=== PATIENT | female | born 1965 | race Caucasian/White ===

== ENCOUNTER 2021-11-29 21:56 | Inpatient (IN) | payer MEDICAID ==
[~2021-11-29] VITALS: Ht 157.5 cm; Wt 107.0 kg
[2021-11-29 23:43] LABS: CLARITY,URINE CLOUDY (Clear); COLOR,URINE YELLOW (Yellow); GLUCOSE, URINE 100 mg/dl (Neg); KETONES,URINE 15 mg/dl (Neg); LEUKOCYTE ESTERASE ,URINE SMALL (Neg); NITRITES, URINE NEGATIVE (Neg); OCCULT BLOOD,URINE LARGE (Neg); PROTEIN,URINE 100 mg/dl (Neg)
[2021-11-29 23:49] LABS: UA COLLECTION TYPE CLN CATCH MIDSTREAM
[2021-11-29 23:50] LABS: URINE AMPHETAMINE SCREEN NEGATIVE (Neg); URINE BARBITUATE SCREEN NEGATIVE (Neg); URINE BENZODIAZEPINES SCREEN NEGATIVE (Neg); URINE CANNABINOID SCREEN NEGATIVE (Neg); URINE COCAINE SCREEN NEGATIVE (Neg); URINE METHADONE SCREEN NEGATIVE (Neg); URINE OPIATE SCREEN NEGATIVE (Neg); URINE PHENCYCLIDINE SCREEN NEGATIVE (Neg)
[2021-11-29 23:52] LABS: BACTERIA,URINE FEW /HPF (Neg); MUCUS STRANDS FEW /LPF (Neg); SQUAMOUS EPITHELIAL CELL,UR MODERATE /LPF (FEW); WBC,URINE 0-4 /HPF (0-4)
[2021-11-29 23:53] LABS: RBC,URINE 20-50 /HPF (0-2)
[2021-11-30 00:27] LABS: ALANINE AMINOTRANSFERASE 25 U/L (12-78); ALBUMIN/GLOBULIN RATIO 0.9 (1.1-1.5); ALKALINE PHOSPHATASE 81 IU/L (46-116); ANION GAP 10 (8-16); ASPARTATE AMINO TRANSFERASE 40 U/L (10-37); BILIRUBIN,DIRECT 0.3 MG/DL (0-0.3); BILIRUBIN,TOTAL 0.9 MG/DL (0.1-1.0); BLOOD UREA NITROGEN 13 MG/DL (7-18); BUN/CREATININE RATIO 17.8 (6.6-38.0); CALCIUM 9.1 MG/DL (8.5-10.1); CHLORIDE 97 MMOL/L (99-107); CREATININE 0.73 MG/DL (0.40-0.90); GLUCOSE 125 MG/DL (70-104); LIPASE 114 U/L (73-393); SODIUM 135 MMOL/L (135-145); TOTAL CARBON DIOXIDE 27.8 MMOL/L (24-32); TOTAL PROTEIN 8.4 G/DL (6.4-8.2); eGFR 82 ML/MIN
[2021-11-30 00:29] LABS: ETHANOL < 0.010 GM/DL (0.0-0.010)
[2021-11-30 00:31] LABS: POTASSIUM 2.6 MMOL/L (3.5-5.1)
[2021-11-30] MEDS ORDERED: potassium Cl 20 mEq SR tablet PO STA (00:37)
[2021-11-30 01:14] LABS: BASOPHILS % (AUTO) 0.6 % (0-1); EOSINOPHILS % (AUTO) 0.3 % (0-6); HEMATOCRIT 30.7 % (35.0-45.0); HEMOGLOBIN 9.6 g/dl (12.0-16.0); LYMPHOCYTES # (AUTO) 0.5 X10'3 (1.1-4.8); LYMPHOCYTES % (AUTO) 11.9 % (21-51); MEAN CORPUSCULAR HEMOGLOBIN 22.6 PG (27.0-31.0); MEAN CORPUSCULAR HGB CONC 31.2 g/dL (33.0-36.5); MEAN CORPUSCULAR VOLUME 72.5 FL (78-98); MEAN PLATELET VOLUME 7.9 FL (7.4-10.4); MONOCYTES # (AUTO) 0.5 X10'3 (0-0.9); MONOCYTES % (AUTO) 11.6 % (2-12); NEUTROPHILS % (AUTO) 75.6 % (42-75); PLATELET COUNT 83 X10'3 (140-440); RED BLOOD COUNT 4.23 X10'6 (4.20-5.60); RED CELL DISTRIBUTION WIDTH 19.4 % (11.5-14.5); WHITE BLOOD COUNT 3.9 X10'3 (4.5-11.0)
[2021-11-30] MEDS ORDERED: LORazepam 2 mg/ml vial IV ONE (01:30)
[2021-11-30] MEDS ORDERED: thiamine 100mg/ml 2ml inj. IV ONE (02:10)
[2021-11-30] MEDS ORDERED: iohexol 300mg/ml 100ml inj. ONE (02:38)
--- NOTE | 2021-11-30 02:47 | NUR ---
PT TO CT
[2021-11-30] MEDS ORDERED: CefTRIAXone/D5W-Rocephin 1gm 50 ML IV ONE (03:00)
[2021-11-30] MEDS ORDERED: haloperidol 5mg tablet PO PRN (05:50)
[2021-11-30] MEDS ORDERED: magnesium 2GM in 50ml NS 50 ML IV PRN (05:50)
[2021-11-30] MEDS ORDERED: magnesium 4gm in 100ml NS 100 ML IV PRN (05:50)
[2021-11-30] MEDS ORDERED: LORazepam 2 mg/ml vial IV PRN (05:50)
[2021-11-30] MEDS ORDERED: potassium CL 10mEq/100ml bag 100 ML IV PRN (05:50)
[2021-11-30] MEDS ORDERED: potassium Cl 20 mEq SR tablet PO PRN (05:50)
[2021-11-30] MEDS ORDERED: ondansetron/PF 4mg/2ml inj IV PRN (05:50)
[2021-11-30] MEDS ORDERED: magnesium Cl slow-release 64mg tablet PO PRN (05:50)
[2021-11-30] MEDS ORDERED: dextrose 50%-water 50ml dispensing syringe IV PRN (05:50)
[2021-11-30] MEDS ORDERED: haloperidol lactate 5mg/ml inj IM PRN (05:50)
[2021-11-30] MEDS: normal saline 1000ml 1,000 ML IV SCH ×2 (06:07→16:52)
[2021-11-30 08:00] VITALS: BP_SYST 0
[2021-11-30] MEDS ORDERED: folic acid 1mg/0.2ml inj IV SCH (08:00)
[2021-11-30] MEDS: K and/or MAG REPLACEMENT MC SCH ×2 (08:00→12:00)
--- NOTE | 2021-11-30 08:10 | NUR ---
Report attemped, will attempt later
[2021-11-30] MEDS: thiamine 100mg/ml 2ml inj. IV SCH ×3 (08:36→20:24)
[2021-11-30] MEDS: docusate sod 100mg capsule PO SCH ×2 (08:37→20:00)
[2021-11-30 08:48] LABS: % IRON SATURATION 5 % (11-46); IRON 18 UG/DL (49-151); TOTAL IRON BINDING CAPACITY 334 UG/DL (259-388)
[2021-11-30 08:52] LABS: MAGNESIUM 1.5 MG/DL (1.5-2.4); POTASSIUM 3.4 MMOL/L (3.5-5.1)
--- NOTE | 2021-11-30 10:36 | NUR ---
Pt admitted to PCU accompanied by staff and daughter via wheel chair, Admission initiated.Pt denies ETOH use or history.Belongings taken per daughter.Pt refusing CT scan. Encouraged by staff and daughter, Daughter became tearful, pt continue to refuse.Telemetry monitoring in progress.Will continue to monitor.
[2021-11-30] MEDS ORDERED: FOLI0.4T14 PO (11:26)
[2021-11-30] MEDS ORDERED: MULT-1085 PO (11:26)
[2021-11-30] MEDS ORDERED: OMEG10006 PO (11:26)
[2021-11-30] MEDS ORDERED: ASCO-134 PO (11:26)
[2021-11-30] MEDS ORDERED: PANT40TA54 PO (11:26)
[2021-11-30] MEDS ORDERED: FERR-106 PO (11:26)
[2021-11-30] MEDS ORDERED: ALBU8.5H17 IH (11:26)
[2021-11-30] MEDS ORDERED: ACET-75 PO (11:26)
[2021-11-30] MEDS ORDERED: albuterol 2.5 MG/3 ML nebule NEB PRN (15:55)
[2021-11-30] MEDS ORDERED: acetaminophen 325mg tablet PO PRN (15:55)
[2021-11-30 16:00] VITALS: BP 128/78
[2021-11-30] MEDS: acetaminophen 325mg tablet PO PRN (17:11)
[2021-11-30 22:00] VITALS: BP 116/80
[2021-12-01] MEDS: potassium Cl 20 mEq SR tablet PO PRN ×2 (00:01→03:57)
[2021-12-01] MEDS: normal saline 1000ml 1,000 ML IV SCH (01:50)
[2021-12-01 02:00] VITALS: BP 119/68
[2021-12-01 04:51] VITALS: BP_SYST 114; BP_SYST 122; BP_DIAS 72; BP_DIAS 73
[2021-12-01 04:52] VITALS: BP 104/59
[2021-12-01 06:00] VITALS: BP 107/67
[2021-12-01 07:14] LABS: BASOPHILS % (AUTO) 0.7 % (0-1); EOSINOPHILS # (AUTO) 0.1 X10'3 (0-0.9); EOSINOPHILS % (AUTO) 2.3 % (0-6); HEMOGLOBIN 8.3 g/dl (12.0-16.0); LYMPHOCYTES # (AUTO) 0.6 X10'3 (1.1-4.8); LYMPHOCYTES % (AUTO) 23.9 % (21-51); MEAN CORPUSCULAR HGB CONC 30.9 g/dL (33.0-36.5); MEAN CORPUSCULAR VOLUME 74.6 FL (78-98); MEAN PLATELET VOLUME 7.8 FL (7.4-10.4); MONOCYTES # (AUTO) 0.4 X10'3 (0-0.9); MONOCYTES % (AUTO) 15.4 % (2-12); NEUTROPHILS # (AUTO) 1.5 X10'3 (1.8-7.7); NEUTROPHILS % (AUTO) 57.7 % (42-75); PLATELET COUNT 68 X10'3 (140-440); RED BLOOD COUNT 3.62 X10'6 (4.20-5.60); RED CELL DISTRIBUTION WIDTH 19.5 % (11.5-14.5); WHITE BLOOD COUNT 2.6 X10'3 (4.5-11.0)
[2021-12-01] MEDS: OMEGA-3/DHA/EPA/FISH OIL 1 EACH CAPSULE.DR PO SCH ×2 (07:19→07:32)
[2021-12-01] MEDS: docusate sod 100mg capsule PO SCH (07:19)
[2021-12-01] MEDS: ferrous sulfate 325mg tablet PO SCH ×3 (07:19→07:33)
[2021-12-01] MEDS: thiamine 100mg/ml 2ml inj. IV SCH (07:20)
[2021-12-01] MEDS: acetaminophen 325mg tablet PO PRN (07:28)
[2021-12-01 07:30] LABS: ALBUMIN 3.1 G/DL (3.4-5.0); ANION GAP 8 (8-16); BLOOD UREA NITROGEN 11 MG/DL (7-18); BUN/CREATININE RATIO 17.7 (6.6-38.0); CALCIUM 8.1 MG/DL (8.5-10.1); CHLORIDE 108 MMOL/L (99-107); CREATININE 0.62 MG/DL (0.40-0.90); GLUCOSE 107 MG/DL (70-104); POTASSIUM 3.6 MMOL/L (3.5-5.1); SODIUM 139 MMOL/L (135-145); TOTAL CARBON DIOXIDE 23.2 MMOL/L (24-32); eGFR > 90 ML/MIN
[2021-12-01] MEDS: folic acid 0.4mg tablet PO SCH ×2 (07:35→08:14)
[2021-12-01] MEDS ORDERED: multivitamins, therapeutics tablet PO SCH (08:00)
[2021-12-01] MEDS ORDERED: ascorbic acid 500mg tablet PO SCH (08:00)
[2021-12-01] MEDS ORDERED: pantoprazole 40mg Tablet.DR PO SCH (08:00)
[2021-12-01] MEDS: K and/or MAG REPLACEMENT MC SCH (08:00)
[2021-12-01 09:56] LABS: PLATELET ESTIMATE DECREASED; TOTAL CELLS COUNTED 100
[2021-12-01 09:57] LABS: LARGE PLATELETS FEW; POLYCHROMASIA 1+
[2021-12-01 09:58] LABS: ELLIPTOCYTES FEW
[2021-12-01 09:59] LABS: MICROCYTOSIS 1+
[2021-12-01 10:00] LABS: ANISOCYTOSIS 2+
--- NOTE | 2021-12-01 11:09 | NUR ---
Met with patient in regards to alcohol use and to see if patient wanted resources for treatment options. Patient would like to go to an outpatient rehab. I gave patient [facility] number to call and get process started. I also gave patient alcohol treatment services pamphlet for [facility]. I talked to patient about medication to help her with craving symptoms. I told patient I would follow up with her and gave her my card if she needs to call me.
--- NOTE | 2021-12-01 13:22 | NUR ---
Discharge to home. Patient accompanied to personal car by staff. Denies any questions or concerns. Discharge teaching and instructions given. Instructed the importance of not drinking, Pt states has belongings brought in by family. IV removed. Telemetry discontinued.
[2021-12-02] MEDS ORDERED: LORazepam 2 mg/ml vial IV PRN (05:50)
[2021-12-02] MEDS ORDERED: LORazepam 1 MG tablet PO PRN (05:50)
[2021-12-04] MEDS ORDERED: LORazepam 2 mg/ml vial IV PRN (05:50)
[2021-12-04] MEDS ORDERED: LORazepam 1 MG tablet PO PRN (05:50)
[2021-12-04] MEDS ORDERED: folic acid 1mg tablet PO SCH (08:00)
[2021-12-04] MEDS ORDERED: thiamine 100mg tablet PO SCH (08:00)
== END 2021-12-01 13:23 | disposition home or self-care (01) | DRG 52 ==
LOC: ER 21:57 → UNDOADMIN 11-30 05:50 → ED HOLD 11-30 05:50 → MED 3N 11-30 09:10 → ED HOLD 11-30 09:10
PROVIDERS: ADMIT Internal Medicine; ATTEND Family Medicine
PROC: BW251ZZ Computerized Tomography (CT Scan) of Chest, Abdomen and Pelvis using Low Osmolar Contrast (ICD-10-PCS; principal; 2021-11-30)
DX: G93.40 Encephalopathy, unspecified (principal); D61.818 Other pancytopenia; F07.81 Postconcussional syndrome; Z66 Do not resuscitate; Z20.822 Contact with and (suspected) exposure to COVID-19; E87.6 Hypokalemia; F10.239 Alcohol dependence with withdrawal, unspecified; M25.551 Pain in right hip; M25.552 Pain in left hip; R07.9 Chest pain, unspecified; V49.9XXA Car occupant (driver) (passenger) injured in unspecified traffic accident, initial encounter; Y93.I9 Activity, other involving external motion; Y92.488 Other paved roadways as the place of occurrence of the external cause; Y99.8 Other external cause status
CPT/HCPCS: 36415; 71046; 71260; 72170; 73110; 74177; 80048; 80076; 80305; 80320; 81001; 82140; 83540; 83550; 83605; 83690; 83735; 84132; 84484; 85007; 85025; 87081; 87635; 93005; 96365; 96375; 99285; C9803; G0378; J0696; J2060; J3411; J7030; Q9967

== ENCOUNTER 2022-04-28 16:33 | Inpatient (IN) | payer MEDICAID ==
[~2022-04-28] VITALS: Ht 157.5 cm; Wt 70.0 kg
[~2022-04-28 16:33] MED LIST: ACET-75 PO; ALBU8.5H17 IH; ASCO-134 PO; FERR-106 PO; FOLI0.4T14 PO; MULT-1085 PO; OMEG10006 PO; PANT40TA54 PO
[2022-04-28 18:02] LABS: MEAN PLATELET VOLUME 8.2 FL (7.4-10.4)
[2022-04-28 18:03] LABS: BASOPHILS % (AUTO) 0.3 % (0-1); EOSINOPHILS % (AUTO) 0.3 % (0-6); HEMATOCRIT 40.4 % (35.0-45.0); HEMOGLOBIN 14.1 g/dl (12.0-16.0); LYMPHOCYTES # (AUTO) 0.3 X10'3 (1.1-4.8); LYMPHOCYTES % (AUTO) 5.5 % (21-51); MEAN CORPUSCULAR HEMOGLOBIN 30.3 PG (27.0-31.0); MEAN CORPUSCULAR VOLUME 86.4 FL (78-98); MONOCYTES # (AUTO) 0.3 X10'3 (0-0.9); MONOCYTES % (AUTO) 6.6 % (2-12); NEUTROPHILS # (AUTO) 4.6 X10'3 (1.8-7.7); NEUTROPHILS % (AUTO) 87.3 % (42-75); PLATELET COUNT 122 X10'3 (140-440); RED BLOOD COUNT 4.67 X10'6 (4.20-5.60); RED CELL DISTRIBUTION WIDTH 12.9 % (11.5-14.5); WHITE BLOOD COUNT 5.2 X10'3 (4.5-11.0)
[2022-04-28 18:16] LABS: ALANINE AMINOTRANSFERASE 23 U/L (12-78); ALBUMIN 4.2 G/DL (3.4-5.0); ALBUMIN/GLOBULIN RATIO 0.9 (1.1-1.5); ALKALINE PHOSPHATASE 90 IU/L (46-116); ANION GAP 11 (8-16); ASPARTATE AMINO TRANSFERASE 29 U/L (10-37); BILIRUBIN,TOTAL 0.7 MG/DL (0.1-1.0); BLOOD UREA NITROGEN 9 MG/DL (7-18); BUN/CREATININE RATIO 9.4 (6.6-38.0); CALCIUM 9.8 MG/DL (8.5-10.1); CHLORIDE 98 MMOL/L (99-107); CREATININE 0.96 MG/DL (0.40-0.90); GLUCOSE 98 MG/DL (70-104); POTASSIUM 3.5 MMOL/L (3.5-5.1); SODIUM 133 MMOL/L (135-145); TOTAL CARBON DIOXIDE 23.9 MMOL/L (24-32); eGFR 60 ML/MIN
[2022-04-28 18:25] LABS: AMYLASE 94 U/L (25-115); LIPASE 137 U/L (73-393)
[2022-04-28] MEDS ORDERED: acetaminophen 325mg tablet PO STA (18:26)
[2022-04-28] MEDS ORDERED: temazepam 15mg capsule PO PRN (21:00)
[2022-04-28] MEDS ORDERED: normal saline 1000ml 1,000 ML IV ONE (22:15)
[2022-04-28] MEDS ORDERED: aspirin 81mg tab.chew PO ONE (22:15)
[2022-04-28 22:55] LABS: CLARITY,URINE CLEAR (Clear); COLOR,URINE YELLOW (Yellow); GLUCOSE, URINE NEGATIVE (Neg); KETONES,URINE TRACE mg/dl (Neg); LEUKOCYTE ESTERASE ,URINE NEGATIVE (Neg); NITRITES, URINE NEGATIVE (Neg); OCCULT BLOOD,URINE NEGATIVE (Neg); PROTEIN,URINE NEGATIVE (Neg); UA COLLECTION TYPE CLN CATCH MIDSTREAM; UROBILINOGEN,URINE 0.2 E.U/dL (0.2-1.0)
[2022-04-28] MEDS ORDERED: haloperidol 5mg tablet PO PRN (23:05)
[2022-04-28] MEDS ORDERED: diphenhydrAMINE 50 mg/ml inj IV PRN (23:05)
[2022-04-28] MEDS ORDERED: ondansetron/PF 4mg/2ml inj IV PRN (23:05)
[2022-04-28] MEDS ORDERED: bisacodyl 10mg suppository rectal RC PRN (23:05)
[2022-04-28] MEDS ORDERED: acetaminophen 650mg rectal suppository RC PRN (23:05)
[2022-04-28] MEDS ORDERED: magnesium hydroxide 30ml (MOM) UD suspension PO PRN (23:05)
[2022-04-28] MEDS ORDERED: mag hydrox/Alum hydrox/simeth 30ml oral suspension PO PRN (23:05)
[2022-04-28] MEDS ORDERED: dextrose 50%-water 50ml dispensing syringe IV PRN (23:05)
[2022-04-28] MEDS ORDERED: haloperidol lactate 5mg/ml inj IM PRN (23:05)
[2022-04-28] MEDS ORDERED: acetaminophen 325mg tablet PO PRN ×2 (23:05)
[2022-04-28] MEDS ORDERED: LORazepam 2 mg/ml vial IV PRN (23:05)
[2022-04-28] MEDS ORDERED: morphine 2 MG/ML inj. syringe IV PRN ×2 (23:05)
[2022-04-28] MEDS ORDERED: ipratropium/albuterol 3ml nebule NEB PRN (23:05)
[2022-04-28] MEDS ORDERED: diphenhydrAMINE 25mg capsule PO PRN (23:05)
[2022-04-28] MEDS ORDERED: HYDROmorphone inj. 0.5 MG/0.5 ML DISP.SYRIN IV PRN (23:05)
[2022-04-28] MEDS ORDERED: HYDROcodone/acetaminophen 5mg/325mg tablet PO PRN (23:05)
[2022-04-28] MEDS ORDERED: ondansetron 4mg rapidly disintigrating tab PO PRN (23:05)
[2022-04-28] MEDS ORDERED: regadenoson 0.4mg/5ml syringe IV PRN (23:15)
[2022-04-28] MEDS ORDERED: nitroGLYCERIN 0.4mg SUBLingual tab SL PRN (23:15)
[2022-04-28] MEDS ORDERED: aminophylline 250mg/10ml inj. IV PRN (23:15)
[2022-04-28] MEDS ORDERED: metoprolol tartrate 1mg/ml inj IV PRN (23:15)
[2022-04-28 23:36] LABS: HEMOGLOBIN A1C 5.5 % (4.5-6.2)
--- NOTE | 2022-04-28 23:50 | NUR ---
1000 nacl bolas started
[2022-04-29] VITALS (12 sets, daily range): BP systolic 87–126; BP diastolic 43–74
[2022-04-29 00:19] LABS: MAGNESIUM 1.4 MG/DL (1.5-2.4); PHOSPHORUS 4.6 MG/DL (2.3-4.5)
[2022-04-29 00:24] LABS: APTT 31 SECONDS (22-32); D-DIMER 0.35 MG/L FEU (0-0.50)
[2022-04-29 00:25] LABS: ETHANOL < 0.010 GM/DL (0.0-0.010)
--- NOTE | 2022-04-29 02:15 | NUR ---
report called to floor rn. tx to floor tf
[2022-04-29] MEDS: dexamethasone inj 6 MG in dextrose 5%-water 100 ML IV SCH ×2 (02:16→08:00)
[2022-04-29] MEDS: normal saline 1000ml 1,000 ML IV SCH ×3 (02:16→19:05)
[2022-04-29] MEDS ORDERED: NO HOME MEDS (02:38)
[2022-04-29] MEDS: HYDROcodone/acetaminophen 10/325mg tab PO PRN ×2 (02:41→11:16)
--- NOTE | 2022-04-29 03:08 | NUR ---
received patient report. Patient arrived with belongings, including purse and cell phone. Patient requested pain pill. [place] given.
[2022-04-29] MEDS ORDERED: magnesium Cl slow-release 64mg tablet PO PRN (05:10)
[2022-04-29] MEDS ORDERED: magnesium 4gm in 100ml NS 100 ML IV PRN (05:10)
[2022-04-29] MEDS ORDERED: magnesium 2GM in 50ml NS 50 ML IV PRN (05:10)
--- NOTE | 2022-04-29 06:16 | NUR ---
Problems reprioritized. Patient report given, questions answered & plan of care reviewed with INEZ Bennett.
[2022-04-29 07:17] LABS: BASOPHILS % (AUTO) 0.2 % (0-1); EOSINOPHILS % (AUTO) 0 % (0-6); HEMATOCRIT 35.9 % (35.0-45.0); HEMOGLOBIN 12.5 g/dl (12.0-16.0); LYMPHOCYTES # (AUTO) 0.4 X10'3 (1.1-4.8); LYMPHOCYTES % (AUTO) 11.9 % (21-51); MEAN CORPUSCULAR HEMOGLOBIN 30.1 PG (27.0-31.0); MEAN CORPUSCULAR HGB CONC 34.8 g/dL (33.0-36.5); MEAN CORPUSCULAR VOLUME 86.4 FL (78-98); MONOCYTES # (AUTO) 0.1 X10'3 (0-0.9); MONOCYTES % (AUTO) 3.1 % (2-12); NEUTROPHILS % (AUTO) 84.8 % (42-75); PLATELET COUNT 102 X10'3 (140-440); RED BLOOD COUNT 4.15 X10'6 (4.20-5.60); RED CELL DISTRIBUTION WIDTH 12.6 % (11.5-14.5); WHITE BLOOD COUNT 3.6 X10'3 (4.5-11.0)
--- NOTE | 2022-04-29 07:52 | NUR ---
ok to give morning dose of decadron per pharmacist
[2022-04-29] MEDS: folic acid 1mg/0.2ml inj IV SCH (08:00)
[2022-04-29] MEDS ORDERED: CefTRIAXone/D5W-Rocephin 1gm 50 ML IV SCH (08:00)
[2022-04-29] MEDS ORDERED: azithromycin 250mg tablet PO SCH (08:00)
[2022-04-29 08:38] LABS: ALANINE AMINOTRANSFERASE 16 U/L (12-78); ALBUMIN 3.3 G/DL (3.4-5.0); ALBUMIN/GLOBULIN RATIO 0.8 (1.1-1.5); ALKALINE PHOSPHATASE 68 IU/L (46-116); ANION GAP 7 (8-16); ASPARTATE AMINO TRANSFERASE 28 U/L (10-37); BILIRUBIN,TOTAL 0.5 MG/DL (0.1-1.0); BLOOD UREA NITROGEN 11 MG/DL (7-18); BUN/CREATININE RATIO 13.8 (6.6-38.0); CALCIUM 8.3 MG/DL (8.5-10.1); CHLORIDE 104 MMOL/L (99-107); CHOL/HDL RATIO 3.2 (0.00-4.99); CHOLESTEROL 153 MG/DL (0-200); GLUCOSE 155 MG/DL (70-104); HDL CHOLESTEROL 48 MG/DL (35-60); LDL CHOLESTEROL 96 MG/DL (50-100); POTASSIUM 3.7 MMOL/L (3.5-5.1); SODIUM 133 MMOL/L (135-145); TOTAL CARBON DIOXIDE 21.7 MMOL/L (24-32); TOTAL PROTEIN 7.4 G/DL (6.4-8.2); TRIGLYCERIDES 36 MG/DL (20-135); eGFR 74 ML/MIN
[2022-04-29] MEDS: thiamine 100mg/ml 2ml inj. IV SCH ×3 (10:13→21:00)
[2022-04-29] MEDS: heparin, porcine 5000 units/ml vial SQ SCH ×2 (10:14→19:59)
[2022-04-29] MEDS: docusate sod 100mg capsule PO SCH ×2 (10:14→20:00)
--- NOTE | 2022-04-29 17:44 | NUR ---
NOTIFIED DR RIVERA RE: PAGER ID: [phone] MESSAGE: ESTELLA SHAW. STRESS TEST RESULTED. TELE [facility] 1974
--- NOTE | 2022-04-29 18:34 | NUR ---
Problems reprioritized. Patient report given, questions answered & plan of care reviewed with DALLIN WILEY.
--- NOTE | 2022-04-29 18:34 | NUR ---
Patient in room PCU 3008. I have received report from Sabrina WILEY and had the opportunity to ask questions and assume patient care.
--- NOTE | 2022-04-29 18:34 | NUR ---
Patient in room PCU 3008. I have received report from Sabrina WILEY and had the opportunity to ask questions and assume patient care.
[2022-04-30 02:00] VITALS: BP 115/49
[2022-04-30] MEDS: normal saline 1000ml 1,000 ML IV SCH (04:00)
--- NOTE | 2022-04-30 06:18 | NUR ---
Problems reprioritized. Patient report given, questions answered & plan of care reviewed with eric chirinos.
--- NOTE | 2022-04-30 06:24 | NUR ---
Patient in room PCU 3008. I have received report from tessy chirinos and had the opportunity to ask questions and assume patient care.
[2022-04-30 06:30] VITALS: BP 124/49
[2022-04-30 06:33] LABS: BASOPHILS % (AUTO) 0 % (0-1); EOSINOPHILS % (AUTO) 0 % (0-6); HEMATOCRIT 36.6 % (35.0-45.0); HEMOGLOBIN 12.8 g/dl (12.0-16.0); LYMPHOCYTES # (AUTO) 0.8 X10'3 (1.1-4.8); LYMPHOCYTES % (AUTO) 12.7 % (21-51); MEAN CORPUSCULAR HEMOGLOBIN 30.4 PG (27.0-31.0); MEAN CORPUSCULAR HGB CONC 34.9 g/dL (33.0-36.5); MEAN CORPUSCULAR VOLUME 87.1 FL (78-98); MEAN PLATELET VOLUME 8.1 FL (7.4-10.4); MONOCYTES # (AUTO) 0.7 X10'3 (0-0.9); MONOCYTES % (AUTO) 10.1 % (2-12); NEUTROPHILS # (AUTO) 5.1 X10'3 (1.8-7.7); NEUTROPHILS % (AUTO) 77.2 % (42-75); PLATELET COUNT 110 X10'3 (140-440); RED CELL DISTRIBUTION WIDTH 12.8 % (11.5-14.5); WHITE BLOOD COUNT 6.7 X10'3 (4.5-11.0)
[2022-04-30 06:41] LABS: ALANINE AMINOTRANSFERASE 16 U/L (12-78); ALBUMIN 3.1 G/DL (3.4-5.0); ALBUMIN/GLOBULIN RATIO 0.8 (1.1-1.5); ALKALINE PHOSPHATASE 64 IU/L (46-116); ANION GAP 5 (8-16); ASPARTATE AMINO TRANSFERASE 28 U/L (10-37); BILIRUBIN,TOTAL 0.3 MG/DL (0.1-1.0); BLOOD UREA NITROGEN 14 MG/DL (7-18); BUN/CREATININE RATIO 17.9 (6.6-38.0); CALCIUM 8.4 MG/DL (8.5-10.1); CHLORIDE 109 MMOL/L (99-107); CREATININE 0.78 MG/DL (0.40-0.90); GLUCOSE 136 MG/DL (70-104); POTASSIUM 3.8 MMOL/L (3.5-5.1); SODIUM 138 MMOL/L (135-145); TOTAL PROTEIN 7.2 G/DL (6.4-8.2); eGFR 76 ML/MIN
--- NOTE | 2022-04-30 07:21 | NUR ---
NOTIFIED DR RIVERA RE: PAGER ID: [phone] MESSAGE: ESTELLA SHAW. HR IN THE 40s. PT ASYMPTOMATIC, BUT HR WAS IN THE 80s YESTERDAY. TELE [facility] 2026
[2022-04-30] MEDS: docusate sod 100mg capsule PO SCH (08:00)
[2022-04-30] MEDS: thiamine 100mg/ml 2ml inj. IV SCH (08:00)
[2022-04-30] MEDS: dexamethasone inj 6 MG in dextrose 5%-water 100 ML IV SCH (08:44)
[2022-04-30] MEDS: heparin, porcine 5000 units/ml vial SQ SCH (08:46)
[2022-04-30] MEDS: folic acid 1mg/0.2ml inj IV SCH (08:47)
[2022-04-30] MEDS ORDERED: DEC4T PO (10:34)
[2022-04-30] MEDS ORDERED: FAMO-128 PO (10:39)
[2022-04-30 11:00] VITALS: BP 127/56
--- NOTE | 2022-04-30 11:55 | NUR ---
PT DISCHARGED IN STABLE CONDITION. LEFT FACILITY IN PRIVATE VEHICLE WITH FAMILY. IV DC [facility] INTACT. FOLLOW UP DIRECTIONS GIVEN, PT AWARE TO SELF QUARANTINE AT HOME. ALL BELONGINGS IN HAND. Addendum: 04/30/22 at 1216 by Ashley Banda RN Amended: Links added.
[2022-04-30] MEDS ORDERED: LORazepam 2 mg/ml vial IV PRN (23:05)
[2022-04-30] MEDS ORDERED: LORazepam 1 MG tablet PO PRN (23:05)
[2022-05-02] MEDS ORDERED: LORazepam 2 mg/ml vial IV PRN (23:05)
[2022-05-02] MEDS ORDERED: LORazepam 1 MG tablet PO PRN (23:05)
[2022-05-03] MEDS ORDERED: thiamine 100mg tablet PO SCH (08:00)
[2022-05-03] MEDS ORDERED: folic acid 1mg tablet PO SCH (08:00)
== END 2022-04-30 11:53 | disposition home or self-care (01) | DRG 720 ==
LOC: ER 16:33 → ED HOLD 23:11 → EDBEDREQ 23:42 → PCU 3S 04-29 02:30
PROVIDERS: ADMIT Family Medicine; ATTEND Internal Medicine
PROC: 4A02XM4 Measurement of Cardiac Total Activity, External Approach (ICD-10-PCS; principal; 2022-04-29)
PROC: 3E033HZ Introduction of Radioactive Substance into Peripheral Vein, Percutaneous Approach (ICD-10-PCS; 2022-04-29)
DX: A41.89 Other specified sepsis (principal); U07.1 COVID-19; N17.9 Acute kidney failure, unspecified; E87.1 Hypo-osmolality and hyponatremia; D69.6 Thrombocytopenia, unspecified; J44.1 Chronic obstructive pulmonary disease with (acute) exacerbation; E86.0 Dehydration; E83.42 Hypomagnesemia; I10 Essential (primary) hypertension; K21.9 Gastro-esophageal reflux disease without esophagitis; K70.30 Alcoholic cirrhosis of liver without ascites; F10.20 Alcohol dependence, uncomplicated; R82.4 Acetonuria; Z82.49 Family history of ischemic heart disease and other diseases of the circulatory system
CPT/HCPCS: 36415; 71045; 74176; 78452; 80053; 80061; 80320; 81003; 82150; 83036; 83605; 83690; 83735; 83880; 84100; 84145; 84443; 84484; 85025; 85379; 85610; 85730; 87040; 87081; 87502; 87503; 87635; 92508; 92616; 93005; 93017; 94760; 97116; 97161; 97530; 99285; A9500; C9803; G0378; J1100; J1644; J3411; J3490; J7030; J7060

== ENCOUNTER 2023-10-02 07:46 | Emergency (ER) | payer MEDICAID ==
[~2023-10-02] VITALS: Ht 157.5 cm; Wt 60.6 kg
[~2023-10-02 07:46] MED LIST changes: -ACET-75 PO; -ALBU8.5H17 IH; -ASCO-134 PO; +FAMO-128 PO; -FERR-106 PO; -FOLI0.4T14 PO; -MULT-1085 PO; -OMEG10006 PO; -PANT40TA54 PO
[2023-10-02 07:58] VITALS: TEMP 97.5
[2023-10-02] MEDS ORDERED: pantoprazole 40 MG vial IV ONE (08:40)
[2023-10-02] MEDS ORDERED: phenazopyridine 100mg tablet PO ONE (08:40)
[2023-10-02] MEDS ORDERED: morphine 4 MG/ML inj SYRINge IV ONE (08:40)
[2023-10-02] MEDS ORDERED: normal saline 1000ML IV soln IVB ONE (08:40)
[2023-10-02] MEDS ORDERED: ondansetron/PF 4mg/2ml inj IV ONE (08:40)
[2023-10-02 08:45] LABS: BASOPHILS % (AUTO) 0.3 % (0-1); EOSINOPHILS # (AUTO) 0.1 X10'3 (0-0.9); EOSINOPHILS % (AUTO) 0.5 % (0-6); HEMATOCRIT 45.9 % (35.0-45.0); HEMOGLOBIN 15.9 g/dl (12.0-16.0); LYMPHOCYTES # (AUTO) 0.5 X10'3 (1.1-4.8); LYMPHOCYTES % (AUTO) 5.1 % (21-51); MEAN CORPUSCULAR HEMOGLOBIN 30.4 PG (27.0-31.0); MEAN CORPUSCULAR HGB CONC 34.7 g/dL (33.0-36.5); MEAN CORPUSCULAR VOLUME 87.7 FL (78-98); MEAN PLATELET VOLUME 7.7 FL (7.4-10.4); MONOCYTES # (AUTO) 0.4 X10'3 (0-0.9); MONOCYTES % (AUTO) 4.2 % (2-12); NEUTROPHILS # (AUTO) 9.6 X10'3 (1.8-7.7); NEUTROPHILS % (AUTO) 89.9 % (42-75); PLATELET COUNT 202 X10'3 (140-440); RED BLOOD COUNT 5.23 X10'6 (4.20-5.60); RED CELL DISTRIBUTION WIDTH 13.1 % (11.5-14.5); WHITE BLOOD COUNT 10.6 X10'3 (4.5-11.0)
[2023-10-02 08:59] LABS: ALANINE AMINOTRANSFERASE 22 U/L (12-78); ALBUMIN 4.2 G/DL (3.4-5.0); ALKALINE PHOSPHATASE 81 IU/L (46-116); ANION GAP 10 (8-16); ASPARTATE AMINO TRANSFERASE 28 U/L (10-37); BILIRUBIN,TOTAL 0.5 MG/DL (0.1-1.0); BLOOD UREA NITROGEN 5 MG/DL (7-18); CALCIUM 9.4 MG/DL (8.5-10.1); CHLORIDE 102 MMOL/L (99-107); CREATININE 0.84 MG/DL (0.40-0.90); GLUCOSE 157 MG/DL (70-104); LIPASE 41 U/L (16-77); POTASSIUM 3.7 MMOL/L (3.5-5.1); SODIUM 139 MMOL/L (135-145); TOTAL PROTEIN 8.5 G/DL (6.4-8.2); eCRCL 57 ML/MIN; eGFR 69 ML/MIN
[2023-10-02] MEDS ORDERED: iohexol 300mg/ml 100ml inj. ONE (09:00)
[2023-10-02 09:20] LABS: HCG SERUM QL NEGATIVE
[2023-10-02 09:26] LABS: APTT 25 SECONDS (22-32)
[2023-10-02 09:31] LABS: MAGNESIUM 1.6 MG/DL (1.5-2.4)
[2023-10-02 09:55] LABS: BILIRUBIN,URINE NEGATIVE (Neg); CLARITY,URINE CLEAR (Clear); COLOR,URINE YELLOW (Yellow); GLUCOSE, URINE NEGATIVE (Neg); KETONES,URINE TRACE mg/dl (Neg); LEUKOCYTE ESTERASE ,URINE NEGATIVE (Neg); NITRITES, URINE NEGATIVE (Neg); OCCULT BLOOD,URINE NEGATIVE (Neg); PH,URINE 8.5 (4.8-8.0); PROTEIN,URINE TRACE mg/dl (Neg); UROBILINOGEN,URINE 0.2 E.U/dL (0.2-1.0)
[2023-10-02 10:00] LABS: URINE AMPHETAMINE SCREEN NEGATIVE (Neg); URINE BARBITUATE SCREEN NEGATIVE (Neg); URINE BENZODIAZEPINES SCREEN NEGATIVE (Neg); URINE CANNABINOID SCREEN NEGATIVE (Neg); URINE COCAINE SCREEN NEGATIVE (Neg); URINE METHADONE SCREEN NEGATIVE (Neg); URINE OPIATE SCREEN NEGATIVE (Neg); URINE PHENCYCLIDINE SCREEN NEGATIVE (Neg)
[2023-10-02 10:05] LABS: UA COLLECTION TYPE CLN CATCH MIDSTREAM
[2023-10-02 10:06] LABS: BACTERIA,URINE NONE SEEN /HPF (Neg); MUCUS STRANDS NONE SEEN /LPF (Neg); RBC,URINE NONE SEEN /HPF (0-2); SQUAMOUS EPITHELIAL CELL,UR FEW /LPF (FEW); WBC,URINE 0-4 /HPF (0-4)
[2023-10-02] MEDS ORDERED: fluconazole 150mg tablet PO ONE (11:50)
[2023-10-02] MEDS ORDERED: levoFLOXACIN 500mg tablet PO ONE (11:50)
[2023-10-02] MEDS ORDERED: metroNIDAZOLE 500mg tablet PO ONE (11:50)
[2023-10-02] MEDS ORDERED: LEVO-65 PO (11:51)
[2023-10-02] MEDS ORDERED: DICY10CA88 PO (11:51)
[2023-10-02] MEDS ORDERED: METR-159 PO (11:51)
[2023-10-02] MEDS ORDERED: METO-292 PO (11:51)
[2023-10-02] MEDS ORDERED: PHEN-824 PO (12:31)
[2023-10-02 12:58] VITALS: BP 119/74; PULSE 100; RESP 17; O2SAT 99
== END 2023-10-02 13:00 | disposition home or self-care (01) ==
LOC: ER 07:46
DX: R35.0 Frequency of micturition (principal); R11.0 Nausea; R19.7 Diarrhea, unspecified
CPT/HCPCS: 36415; 71045; 74177; 80053; 80305; 81001; 83605; 83690; 83735; 84484; 84703; 85025; 85610; 85730; 87088; 93005; 96361; 96374; 96375; 99285; C9113; J2270; J2405; J3490; J7030; Q9967